=== PATIENT | female | born 1985 | race Caucasian/White ===

== ENCOUNTER 2017-02-23 20:10 | Emergency (ER) | payer MEDICAID ==
[~2017-02-23] VITALS: Ht 167.6 cm; Wt 86.2 kg
[~2017-02-23 20:10] MED LIST: TYLENOL325 M2 PO
[2017-02-23 20:26] VITALS: BP 133/61
--- NOTE | 2017-02-23 21:25 | NUR ---
PATIENT AMBULATED TO ER BED 3.
--- NOTE | 2017-02-23 21:39 | NUR ---
31Y F BIB SPOUSE C/O OF FACIAL PAIN DUE TO EAR INFECTION. PT WENT TO [place] AND PRESCRIBED ZITHROMAX BUT PT CONDITION DID NOT IMPROVED AT ALL.
--- NOTE | 2017-02-23 21:52 | NUR ---
Patient being evaluated by physician at bedside.
[2017-02-23] MEDS ORDERED: HYDROcodone/APAP 5/325 MG 1 TAB TAB PO ONE (22:00)
[2017-02-23] MEDS ORDERED: AMOXICILLIN 500 MG CAP PO ONE (22:00)
--- NOTE | 2017-02-23 22:25 | NUR ---
Patient discharged with v/s stable. Written and verbal after care instructions given and explained. Patient alert, oriented and verbalized understanding of instructions. Ambulatory with steady gait. All questions addressed prior to discharge. ID band removed. Patient advised to follow up with PMD. Rx of AUGMENTIN, NORCO, DEXTROMETHORPHAN given. Patient educated on indication of medication including possible reaction and side effects. Opportunity to ask questions provided and answered.
[2017-02-23 22:26] VITALS: BP 133/61
== END 2017-02-23 22:25 | disposition home or self-care (01) ==
LOC: MED 20:10
DX: J32.9 Chronic sinusitis, unspecified (principal)

== ENCOUNTER 2017-02-24 08:45 | Emergency (ER) | payer MEDICAID ==
[~2017-02-24] VITALS: Ht 167.6 cm; Wt 103.0 kg
[2017-02-24 08:51] VITALS: BP 138/88
--- NOTE | 2017-02-24 09:02 | NUR ---
31/F TO ED WITH C/O LEFT SIDED FACIAL PAIN X1 DAY. PT STATES SHE WAS SEEN IN ED LAST NIGHT BUT SWELLING INCREASED. NO VISION CHANGES. PAIN 8/10. LUNGS CLEAR BILAT. HR EVEN AND REGULAR .AAOX4. VSS. NO SIGNS OF DISTRESS.
--- NOTE | 2017-02-24 10:30 | NUR ---
Patient appears to be resting comfortably in bed. Vital Signs within normal limits. Respirations even and unlabored.
--- NOTE | 2017-02-24 11:38 | NUR ---
Patient appears to be resting comfortably in bed. Vital Signs within normal limits. Respirations even and unlabored.
--- NOTE | 2017-02-24 12:20 | NUR ---
PT WILL BE TRANSFERED TO [facility]
[2017-02-24] MEDS ORDERED: MORPHINE SULFATE 2 MG/ML SYR IVP ONE (12:30)
[2017-02-24] MEDS ORDERED: AMPICILLIN/SULBACTAM 3 GM VIAL IM ONE (12:30)
[2017-02-24] MEDS ORDERED: AMPICILLIN/SULBACTAM 3 GM in NACL 0.9% 100 ML IV ONE (12:40)
--- NOTE | 2017-02-24 14:00 | NUR ---
AWAITING [facility] FOR TRANSFER [facility]
[2017-02-24 14:52] VITALS: BP 126/98
--- NOTE | 2017-02-24 14:53 | NUR ---
Patient to be transferred to [facility]. Is being transferred due to CT RESULTS. Receiving facility has accepting physician and available space. ER physician has signed transfer form. Patient or responsible republican has agreed to transfer and signed form. Patient belongings inventoried and will be sent with patient. Copy of nursing notes, lab reports, EKG, Physicians Orders and X-rays to be sent with patient. Report called to [facility] at receiving facility. [facility] ambulance service has been called for transfer. ETA is 25 MIN.
== END 2017-02-24 14:53 | disposition short-term general hospital (02) ==
LOC: MED 08:45
DX: L02.01 Cutaneous abscess of face (principal); J01.00 Acute maxillary sinusitis, unspecified
CPT/HCPCS: 36415; 70486; 70490; 80053; 85025; 87040; 96365; 96366; 96375; 99285; J0295; J2270

== ENCOUNTER 2019-09-23 15:07 | Emergency (ER) | payer MEDICAID, OTHER ==
[~2019-09-23] VITALS: Ht 167.6 cm; Wt 90.7 kg
[~2019-09-23 15:07] MED LIST changes: +ACET-2619 PO; -TYLENOL325 M2 PO
[2019-09-23 15:15] VITALS: BP 148/110
--- NOTE | 2019-09-23 15:20 | NUR ---
Note undone in EDM - 09/23/19 at 1536 by [facility] C/O COUGH, SORE THROAT X 3 DAYS. LEFT EAR PAIN X TODAY. lung sounds clear all throughout. no resp distress noted. no sob. cough present. no fever,n,v,d. also had left ear pain. right ear shows no drianage or swelling or redness noted. nka. MED HX: TUBALIGATION
--- NOTE | 2019-09-23 15:23 | NUR ---
PATIENT AMBULATED TO BED 11
--- NOTE | 2019-09-23 15:23 | NUR ---
C/O COUGH, SORE THROAT X 3 DAYS. LEFT EAR PAIN X TODAY. lung sounds clear all throughout. no resp distress noted. no sob. cough present. no fever,n,v,d. also had left ear pain. right ear shows no drianage or swelling or redness noted. nka. MED HX: TUBALIGATION
[2019-09-23 15:43] VITALS: BP 148/110
--- NOTE | 2019-09-23 15:43 | NUR ---
Patient discharged with v/s stable. Written and verbal after care instructions given and explained. Patient alert, oriented and verbalized understanding of instructions. Ambulatory with steady gait. All questions addressed prior to discharge. ID band removed. Patient advised to follow up with PMD. Rx of FLONASE NASAL SPRAY AND PROMETHAZINE SYRUP given. Patient educated on indication of medication including possible reaction and side effects. Opportunity to ask questions provided and answered.
== END 2019-09-23 15:43 | disposition home or self-care (01) ==
LOC: MED 15:07
DX: J06.9 Acute upper respiratory infection, unspecified (principal); H92.02 Otalgia, left ear; Z79.899 Other long term (current) drug therapy
CPT/HCPCS: 99283